=== PATIENT | male | born 1985 | race Caucasian/White ===

== ENCOUNTER 2021-05-18 16:30 | Emergency (ER) | payer OTHER ==
[2021-05-18 16:47] VITALS: BP 146/98; PULSE 72; TEMP 97.8; BMI 34.4
[2021-05-18] MEDS ORDERED: DIPHTH,PERTUSS(ACELL),TET 0.5 ML DISP.SYRIN IM ONE ×2 (16:59→17:01)
== END 2021-05-18 17:15 | disposition home or self-care (01) ==
LOC: FER 16:30
PROC: 3E0234Z Introduction of Serum, Toxoid and Vaccine into Muscle, Percutaneous Approach (ICD-10-PCS; principal; 2021-05-18)
DX: S01.03XA Puncture wound without foreign body of scalp, initial encounter (principal); W22.8XXA Striking against or struck by other objects, initial encounter
CPT/HCPCS: 90715; 99284-25